=== PATIENT | male | born 1980 | race Caucasian/White ===

== ENCOUNTER 2017-09-15 02:29 | Emergency (ER) | payer BC, OTHER ==
[~2017-09-15] VITALS: Ht 172.7 cm; Wt 84.0 kg
[~2017-09-15 02:29] MED LIST: CMD5 PO; LPR25 PO
[2017-09-15 02:46] VITALS: TEMP 36.5; Ht 172.7 cm; Wt 84.0 kg
--- NOTE | 2017-09-15 03:04 | EMERGENCY ROOM VISIT NOTE ---
History Report prepared by Ellyn: Kelton Grajeda Under the Supervision of: Dr. Chantelle Lloyd D.O. First contact with patient: 02:40 Chief Complaint: CARDIAC ASSESSMENT Stated Complaint: TIGHTNESS IN CHEST Nursing Triage Summary: chest tightness off and on tonight. hx of mustard operation in , aflutter. metoprolol was changed 3 weeks ago due to lots of palpitations History of Present Illness The patient is a 37 year old male who presents to the Emergency Room with complaints of on and off chest tightness occurring around 0030 and then 0200 this morning. He states that the pain came and went around 5-6 times. The patient has a history of a Mustard operation in , atrial flutter in 2013, and a stent placed in 2014. He additionally notes that he was having palpitations three weeks ago, and his metoprolol was changed. He states that he had an echo done sometime this year, and three weeks ago he had an EG done. The patient notes that today was a normal today, and he did not have an increase in caffeine or anything stressful. He denies any issues with his thyroid, and he has never had tightness like this in the past..Pt denies headache, change in vision, fevers, shortness of breath, nausea, vomiting, diarrhea, pain with urination, and melena. Source of History: patient Onset: 0030 and 0200 Position: chest Quality: other (tightness) Timing: other (on and off) Review of Systems See HPI for pertinent positives & negatives. A total of 10 systems reviewed and were otherwise negative. Past Medical & Surgical Medical Problems: (1) Transposition of great vessels Surgical Problems: (1) H/O Mustard procedure Social History Smoking Status: Never Smoker Marital Status: Housing Status: lives with family Current/Historical Medications Scheduled Lisinopril (Prinivil), 10 MG PO DAILY Metoprolol Succ (Toprol Xl) (Toprol-Xl), 12.5 MG PO DAILY Warfarin Sodium (Coumadin), 1 TAB PO 3XWK Warfarin Sodium (Coumadin), 1.5 TAB PO 4XWK Allergies Coded Allergies: No Known Allergies (Unverified , 09/15/17) Physical Exam Vital Signs Date Time Temp Pulse Resp B/P (MAP) Pulse Ox O2 Delivery O2 Flow Rate FiO2 09/15/17 07:08 60 17 119/72 94 09/15/17 06:31 119/72 09/15/17 06:11 60 17 94 09/15/17 06:09 61 09/15/17 06:01 133/83 09/15/17 05:41 56 15 93 09/15/17 05:36 59 17 96 Room Air 09/15/17 05:31 117/73 09/15/17 05:06 57 20 94 09/15/17 05:01 117/75 09/15/17 04:36 63 16 93 09/15/17 04:31 127/69 09/15/17 04:29 62 18 94 Room Air 09/15/17 04:01 122/70 09/15/17 03:59 58 17 94 09/15/17 03:45 62 16 122/80 98 Room Air 09/15/17 03:31 122/80 09/15/17 03:29 63 18 93 09/15/17 03:01 136/84 09/15/17 02:59 67 26 96 09/15/17 02:53 63 09/15/17 02:46 36.5 73 18 151/90 98 Room Air 09/15/17 02:45 151/90 Physical Exam GENERAL: alert, well appearing, well nourished, no distress, non-toxic EYE EXAM: normal conjunctiva, PERRL and EOM's grossly intact OROPHARYNX: no exudate, no erythema, lips, buccal mucosa, and tongue normal and mucous membranes are moist NECK: supple, no nuchal rigidity, no adenopathy, non-tender LUNGS: Clear to auscultation. Normal chest wall mechanics. HEART: Mildly irregular heart beat. Soft systolic ejection murmur. CHEST: No reproducible chest pain. ABDOMEN: abdomen soft, non-tender, normo-active bowel sounds, no masses, no rebound or guarding. BACK: Back is symmetrical on inspection and there is no deformity, no midline tenderness, no CVA tenderness. SKIN: no rashes and no bruising UPPER EXTREMITIES: upper extremities are grossly normal. LOWER EXTREMITIES: No pitting edema. NEURO EXAM: Normal sensorium, cranial nerves II-XII grossly intact, normal speech, no gross weakness of arms, no gross weakness of legs. Gross sensation intact. Medical Decision & Procedures ER Provider Diagnostic Interpretation: Radiology results have been interpreted by the radiologist and reviewed by me. CHEST ONE VIEW PORTABLE HISTORY: 37 years-old Male chest pain acute atypical chest pain with chest tightness. COMPARISON: Chest radiograph 08/15/2014 TECHNIQUE: Portable upright AP view of the chest FINDINGS: Cardiac silhouette is mildly enlarged with mild pulmonary vascular congestion. Prior median sternotomy. Vascular stent graft projects over the mid heart. There is no pneumothorax. Mild blunting of the left costophrenic angle. Hazy subsegmental left basilar opacities are present. No overt pulmonary edema. The bones of the chest are grossly intact. IMPRESSION: 1. Cardiomegaly and pulmonary vascular congestion without overt pulmonary edema. 2. Suspected small left pleural effusion with left basilar atelectasis or less likely pneumonia. The above report was generated using voice recognition software. It may contain grammatical, syntax or spelling errors. Electronically signed by: Noe Lewis M.D. 09/15/2017 6:51 AM Dictated Date/Time: 09/15/2017 6:48 AM Laboratory Results 09/15/17 02:44 Red Blood Count 5.69, Mean Corpuscular Volume 82.1, Mean Corpuscular Hemoglobin 27.4, Mean Corpuscular Hemoglobin Concent 33.4, Mean Platelet Volume 10.0, Neutrophils (%) (Auto) 52.4, Lymphocytes (%) (Auto) 37.4, Monocytes (%) (Auto) 7.9, Eosinophils (%) (Auto) 1.7, Basophils (%) (Auto) 0.4, Neutrophils # (Auto) 4.27, Lymphocytes # (Auto) 3.05, Monocytes # (Auto) 0.64, Eosinophils # (Auto) 0.14, Basophils # (Auto) 0.03 09/15/17 02:44 Test 09/15/17 02:44 09/15/17 06:00 White Blood Count 8.15 K/uL (4.8-10.8) Red Blood Count 5.69 M/uL (4.7-6.1) Hemoglobin 15.6 g/dL (14.0-18.0) Hematocrit 46.7 % (42-52) Mean Corpuscular Volume 82.1 fL (80-100) Mean Corpuscular Hemoglobin 27.4 pg (25-34) Mean Corpuscular Hemoglobin Concent 33.4 g/dl (32-36) Platelet Count 203 K/uL (130-400) Mean Platelet Volume 10.0 fL (7.4-10.4) Neutrophils (%) (Auto) 52.4 % Lymphocytes (%) (Auto) 37.4 % Monocytes (%) (Auto) 7.9 % Eosinophils (%) (Auto) 1.7 % Basophils (%) (Auto) 0.4 % Neutrophils # (Auto) 4.27 K/uL (1.4-6.5) Lymphocytes # (Auto) 3.05 K/uL (1.2-3.4) Monocytes # (Auto) 0.64 K/uL (0.11-0.59) Eosinophils # (Auto) 0.14 K/uL (0-0.5) Basophils # (Auto) 0.03 K/uL (0-0.2) RDW Standard Deviation 36.4 fL (36.4-46.3) RDW Coefficient of Variation 12.2 % (11.5-14.5) Immature Granulocyte % (Auto) 0.2 % Immature Granulocyte # (Auto) 0.02 K/uL (0.00-0.02) Prothrombin Time 24.0 SECONDS (9.0-12.0) Prothromb Time International Ratio 2.2 (0.9-1.1) Anion Gap 9.0 mmol/L (3-11) Est Creatinine Clear Calc Drug Dose 111.2 ml/min Estimated GFR () 116.6 Estimated GFR (Non- 100.6 BUN/Creatinine Ratio 17.3 (10-20) Calcium Level 8.7 mg/dl (8.5-10.1) Magnesium Level 2.1 mg/dl (1.8-2.4) Total Bilirubin 0.8 mg/dl (0.2-1) Aspartate Amino Transf (AST/SGOT) 21 U/L (15-37) Alanine Aminotransferase (ALT/SGPT) 25 U/L (12-78) Alkaline Phosphatase 100 U/L (45-117) Pro-B-Type Natriuretic Peptide 1003 pg/ml (0-450) Total Protein 8.3 gm/dl (6.4-8.2) Albumin 4.2 gm/dl (3.4-5.0) Globulin 4.1 gm/dl (2.5-4.0) Albumin/Globulin Ratio 1.0 (0.9-2) Chemistry Specimen Hemolysis Troponin I < 0.015 ng/ml (0-0.045) Laboratory results per my review. ECG Indication: chest pain Rate (beats per minute): 60 Rhythm: atrial fibrillation Findings: T-wave inversion, other (Normal QRS and QTc. Rightward axis.) Comparison ECG Date: 09/06/14 Change: T waves inversions are not new. ED Course 0250: The patient was evaluated in room B10. A complete history and physical exam was performed. 0441: I reevaluated the patient, and he was peacefully sleeping with stable vitals 0634: I discussed the patient's case with Dr. Tamez, Cardiology, and he was able to review the patient's telemetry remotely. He agrees with the plan with a repeat troponin. If negative, then he can go home. He states that the elevated BNP is not worrisome due to past cardiac surgery and the strain from the right ventricle. Tele monitor now shows pt in sinus rhythm. 0644: Upon reevaluation, the patient is feeling better. I discussed the findings and the treatment plan with the patient. He verbalizes agreement and understanding. He was discharged home. Medical Decision Differential diagnosis: Etiologies such as cardiac ischemia, aortic dissection, pulmonary embolism, pneumonia, pneumothorax, musculoskeletal, infections, pericarditis, myocarditis , esophageal rupture, gastrointestinal, as well as others were entertained. Patient with significant cardiac history both as an and now as an adult. Patient anticoagulated due to history of dysrhythmias and INR therapeutic. Patient with very atypical description of chest "twinges". No other concerning her coming symptoms. Patient monitored here and 2 troponins drawn both of which were negative. Case discussed with Dr. Tamez who reviewed the patient' s results and cardiac monitor rhythms at bedside. Patient well-appearing here , aware of all results and plan for follow-up with cardiology. Doubt PE, dissection, tamponade, effusion, pneumothorax, no evidence of infiltrate, no other symptoms suggestive of occult respiratory infection. Doubt GI etiology. Medication Reconcilliation Current Medication List: was personally reviewed by me Blood Pressure Screening Patient's blood pressure: Normal blood pressure Consults Time Called: 0630 Consulting Physician: Dr. Tamez, Cardiology Returned Call: [phone] I discussed the patient's case with Dr. Tamez, Cardiology, and he was able to review the patient's telemetry remotely. He agrees with the plan with a repeat troponin. If negative, then he can go home. He states that the elevated BNP is not worrisome due to past cardiac surgery and the strain from the right ventricle. Impression Primary Impression: Atypical chest pain Scribe Attestation The scribe's documentation has been prepared under my direction and personally reviewed by me in its entirety. I confirm that the note above accurately reflects all work, treatment, procedures, and medical decision making performed by me. Departure Information Dispostion Home / Self-Care Referrals Delfino Tamez D.O. (PCP) Forms IMPORTANT VISIT INFORMATION Patient Instructions My [facility] Additional Instructions Please continue your regular medications as prescribed. Please continue to monitor for any changes in your symptoms. Closely as instructed by your heart doctor. If you have any recurrent episodes of chest discomfort or pain, develop palpitations, trouble breathing, dizziness, or have any other new concerns, please return the emergency room. Please call and follow up with your car whacker as a precaution.
[2017-09-15 03:17] LABS: BASO % 0.4 %; BASO ABS # 0.03 K/uL (0-0.2); COMPLETE YES; EOS % 1.7 %; HEMATOCRIT 46.7 % (42-52); IG% 0.2 %; LYMPH % 37.4 %; LYMPH ABS # 3.05 K/uL (1.2-3.4); MEAN CELL VOLUME 82.1 fL (80-100); MEAN CORPUSCULAR HEMOGLOBIN 27.4 pg (25-34); MEAN CORPUSCULAR HGB CONC 33.4 g/dl (32-36); MONO % 7.9 %; NEUT % 52.4 %; PLATELET COUNT 203 K/uL (130-400); RED BLOOD COUNT 5.69 M/uL (4.7-6.1); WHITE BLOOD COUNT 8.15 K/uL (4.8-10.8)
[2017-09-15 03:24] LABS: INR 2.2 (0.9-1.1)
[2017-09-15 03:37] LABS: ALT/SGPT 25 U/L (12-78); AST/SGOT 21 U/L (15-37); BLOOD UREA NITROGEN 17 mg/dl (7-18); BUN/CREATININE RATIO 17.3 (10-20); CALCIUM 8.7 mg/dl (8.5-10.1); CARBON DIOXIDE 27 mmol/L (21-32); CHLORIDE 105 mmol/L (98-107); CREATININE 0.96 mg/dl (0.60-1.40); GLUCOSE 106 mg/dl (70-99); MAGNESIUM 2.1 mg/dl (1.8-2.4); POTASSIUM 3.6 mmol/L (3.5-5.1); SODIUM 141 mmol/L (136-145)
[2017-09-15 03:46] LABS: ALKALINE PHOSPHATASE 100 U/L (45-117)
[2017-09-15] MEDS ORDERED: METO25TA3 PO (04:13)
[2017-09-15] MEDS ORDERED: WARF5TAB90 PO ×2 (04:15)
[2017-09-15] MEDS ORDERED: LISI20TA3 PO (04:15)
--- NOTE | 2017-09-15 06:52 | DIAGNOSTIC IMAGING REPORT ---
CHEST ONE VIEW PORTABLE HISTORY: 37 years-old Male chest pain acute atypical chest pain with chest tightness. COMPARISON: Chest radiograph 08/15/2014 TECHNIQUE: Portable upright AP view of the chest FINDINGS: Cardiac silhouette is mildly enlarged with mild pulmonary vascular congestion. Prior median sternotomy. Vascular stent graft projects over the mid heart. There is no pneumothorax. Mild blunting of the left costophrenic angle. Hazy subsegmental left basilar opacities are present. No overt pulmonary edema. The bones of the chest are grossly intact. IMPRESSION: 1. Cardiomegaly and pulmonary vascular congestion without overt pulmonary edema. 2. Suspected small left pleural effusion with left basilar atelectasis or less likely pneumonia. The above report was generated using voice recognition software. It may contain grammatical, syntax or spelling errors. Electronically signed by: Noe Lewis M.D. 09/15/2017 6:51 AM Dictated Date/Time: 09/15/2017 6:48 AM
[2017-09-15 07:08] VITALS: BP 119/72; PULSE 60; O2SAT 94
== END 2017-09-15 07:09 | disposition home or self-care (01) ==
LOC: C.EDB 02:30
DX: R07.89 Other chest pain (principal); I51.7 Cardiomegaly; Z98.890 Other specified postprocedural states; Z79.899 Other long term (current) drug therapy